=== PATIENT | female | born 1995 | race Caucasian/White ===

== ENCOUNTER 2019-01-01 16:19 | Emergency (ER) | payer BC ==
[~2019-01-01] VITALS: Ht 160 cm; Wt 72.6 kg
[2019-01-01 16:30] VITALS: BP 128/67
--- NOTE | 2019-01-01 16:52 | NUR ---
PT AMB TO BED 10 WITH STEADY GAIT
--- NOTE | 2019-01-01 17:01 | NUR ---
PT BIB TO THE ED WITH THE CHIEF C/O VAGINAL BLEEDING X TODAY WITH SMALL BLOOD CLOT. PT IS 8 WEEKS . DENIES N/V/D AT THIS TIME. DENIES FEVER. DENIES ANY OTHER PROBLEM AT THIS TIME. BREATHING NORMALLY. AMBULATORY. STATES PAIN OF 0/10.
[2019-01-01 18:39] LABS: BASOPHILS # (AUTO) 0.1 K/uL (0.00-0.22); BASOPHILS % (AUTO) 0.6 % (0.0-2.0); EOSINOPHILS # (AUTO) 0.1 K/uL (0-0.4); HEMATOCRIT 37.5 % (36-48); HEMOGLOBIN 12.8 g/dL (12.0-16.0); LYMPHOCYTES # (AUTO) 3.4 K/uL (2.5-16.5); LYMPHOCYTES % (AUTO) 25.7 % (20.5-51.1); MEAN CORPUSCULAR HEMOGLOBIN 30 pg (27-31); MEAN CORPUSCULAR HGB CONC 34 g/dL (33-37); MEAN CORPUSCULAR VOLUME 89.1 fL (80-94); MONOCYTES # (AUTO) 0.9 K/uL (0.8-1.0); MONOCYTES % (AUTO) 6.4 % (1.7-9.3); NEUTROPHILS # (AUTO) 8.8 K/uL (1.8-7.7); NEUTROPHILS % (AUTO) 66.3 % (42.2-75.2); PLATELET COUNT (AUTO) 198 K/uL (140-450); RED CELL DISTRIBUTION WIDTH 13.1 % (11.6-13.7); WHITE BLOOD COUNT (AUTO) 13.4 K/uL (4.8-10.8)
--- NOTE | 2019-01-01 19:13 | NUR ---
REPORT GIVEN TO CREDIT RISK ANALYST RN FOR CONTINUITY OF CARE.
[2019-01-01 19:15] LABS: APPEARANCE,URINE HAZY (CLEAR); BILIRUBIN,URINE NEGATIVE (NEGATIVE); BLOOD, URINE 2+ (NEGATIVE); COLOR,URINE YELLOW (YELLOW); LEUKOCYTE ESTERASE ,URINE NEGATIVE (NEGATIVE); NITRITE, URINE NEGATIVE (NEGATIVE); PH,URINE 8.5 (5.0-9.0); UGLUCOSE NEGATIVE (NEGATIVE)
--- NOTE | 2019-01-01 19:15 | NUR ---
ASSUMED CARE OF PT FROM TIFFANY ZARAGOZA.
[2019-01-01 19:33] LABS: WBC,URINE 0-5 /HPF (0-5)
--- NOTE | 2019-01-01 20:23 | NUR ---
PT WAS TX FROM ER BED 10 TO BED 11
[2019-01-01 20:37] VITALS: BP 101/57
--- NOTE | 2019-01-01 20:37 | NUR ---
Patient discharged with v/s stable. Written and verbal after care instructions given and explained. Patient verbalized understanding. Ambulatory with steady gait. All questions addressed prior to discharge. Advised to follow up with PMD. PT STATED HER PAIN LEVEL HAD DECREASED TO 3/10 PRIOR TO D/C. PT STATED SHE WAS GOING TO MAKE AN OPP. WITH AN TRANSITION RN TO FOLLOW UP WITH OUT/PT CARE.
== END 2019-01-01 20:37 | disposition home or self-care (01) ==
LOC: MED 16:19
DX: O20.8 Other hemorrhage in early pregnancy (principal); Z3A.01 Less than 8 weeks gestation of pregnancy
CPT/HCPCS: 36415; 76817; 81001; 81025; 84702; 85025; 86900; 86901; 99284; Q0092

== ENCOUNTER 2019-07-26 08:30 | Observation (INO) | payer BC, MEDICAID ==
[2019-07-26 10:00] VITALS: BP 112/72
== END 2019-07-26 09:30 | disposition home or self-care (01) ==
LOC: MLD 08:30
PROVIDERS: ADMIT Obstetrics & Gynecology; ATTEND Obstetrics & Gynecology
DX: O42.913 Preterm premature rupture of membranes, unspecified as to length of time between rupture and onset of labor, third trimester (principal); Z3A.36 36 weeks gestation of pregnancy
CPT/HCPCS: 81000; G0378

== ENCOUNTER 2019-09-30 12:08 | Emergency (ER) | payer SELFPAY ==
[~2019-09-30] VITALS: Ht 162.6 cm; Wt 68.0 kg
[2019-09-30 12:15] VITALS: BP 121/64
[2019-09-30 12:54] VITALS: BP 121/64
== END 2019-09-30 12:49 | disposition home or self-care (01) ==
LOC: MED 12:08
DX: F41.9 Anxiety disorder, unspecified (principal); R20.0 Anesthesia of skin; D64.9 Anemia, unspecified
CPT/HCPCS: 99281